=== PATIENT | male | born 2000 | race Two or more races ===

== ENCOUNTER 2025-05-27 05:43 | Emergency (ER) | payer SELFPAY ==
[~2025-05-27] VITALS: Ht 167.6 cm; Wt 62.0 kg
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
[2025-05-27 06:55] VITALS: BP 142/73; PULSE 78; RESP 16; TEMP 98.2; O2SAT 100
[2025-05-27] MEDS ORDERED: GENT0.3S10 EACHEYE (06:56)
== END 2025-05-27 07:05 | disposition home or self-care (01) ==
LOC: ER 05:43
DX: H10.31 Unspecified acute conjunctivitis, right eye (principal)

== ENCOUNTER 2025-07-02 20:30 | Emergency (ER) | payer SELFPAY ==
[~2025-07-02] VITALS: Ht 170.2 cm; Wt 65.8 kg
[~2025-07-02 20:30] MED LIST: GENT0.3S10 EACHEYE
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
[2025-07-02] MEDS ORDERED: TIZA-142 PO (22:25)
[2025-07-02] MEDS ORDERED: METH4PAK PO (22:25)
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
[2025-07-02 22:30] VITALS: BP 157/89; PULSE 80; RESP 18; TEMP 98.4; O2SAT 99
== END 2025-07-02 22:40 | disposition home or self-care (01) ==
LOC: ER 20:30
DX: S13.4XXA Sprain of ligaments of cervical spine, initial encounter (principal); S46.911A Strain of unspecified muscle, fascia and tendon at shoulder and upper arm level, right arm, initial encounter; Z79.899 Other long term (current) drug therapy; V89.2XXA Person injured in unspecified motor-vehicle accident, traffic, initial encounter; Y93.89 Activity, other specified; Y92.488 Other paved roadways as the place of occurrence of the external cause; Y99.8 Other external cause status
CPT/HCPCS: 72040; 73030